=== PATIENT | male | born 1955 | race Caucasian/White ===

== ENCOUNTER 2018-03-05 09:53 | Outpatient (CLI) | payer OTHER ==
[2018-03-05 10:28] LABS: Anion Gap 19 mmol/L (10-20); BUN (Urea Nitrogen) 16 mg/dL (8.4-25.7); Calc. Creatinine Clearance 0 mL/min (70-130); Calcium 9.3 mg/dL (7.8-10.44); Carbon Dioxide 25 mmol/L (23-31); Chloride 103 mmol/L (98-107); Estimated GFR-MDRD 48; Glucose 117 mg/dL (80-115); Potassium 4.7 mmol/L (3.5-5.1); Sodium 142 mmol/L (136-145)
== END 2018-03-05 09:54 | disposition home or self-care (01) ==
LOC: MADLAB 09:53
PROVIDERS: ATTEND Internal Medicine Nephrology
DX: I12.9 Hypertensive chronic kidney disease with stage 1 through stage 4 chronic kidney disease, or unspecified chronic kidney disease (principal); N18.3 Chronic kidney disease, stage 3 (moderate)
CPT/HCPCS: 36415; 80048

== ENCOUNTER 2023-09-20 11:36 | Outpatient (CLI) | payer MEDICARE | END 2023-09-20 11:37 | disposition home or self-care (01) | LOC: MADRAD 11:36 | PROVIDERS: ATTEND Physician Assistant | DX: R05.9 Cough, unspecified (principal) | CPT/HCPCS: 71046 ==

== ENCOUNTER 2024-11-08 13:29 | Emergency (ER) | payer MEDICARE ==
[2024-11-08 14:26] LABS: #Basophils 0.1 thou/uL (0.0-0.2); #Eosinophils 0.3 thou/uL (0.0-0.7); #Lymphocytes 1.1 thou/uL (1.20-3.40); #Monocytes 0.8 thou/uL (0.11-0.59); #Neutrophils 5.3 thou/uL (1.40-6.50); %Basophils 1.3 % (0.0-1.0); %Eosinophils 4.1 % (0.0-10.0); %Lymphocytes 14.1 % (21.0-51.0); %Monocytes 10.7 % (0.0-10.0); %Neutrophils 69.7 % (42.0-75.0); Hematocrit 38.8 % (42.0-52.0); Hemoglobin 13.2 g/dL (14.0-18.0); Mean Corpuscular Volume 103.1 fl (78.0-98.0); Mean Platelet Volume 6.7 fL (7.4-10.4); Platelet Count 261 10x3/uL (130-400); RBC Distribution Width 11.6 % (11.5-14.5); Red Blood Cell (RBC) Count 3.77 mill/uL (4.70-6.10); White Blood Cell (WBC) Count 7.6 10x3/uL (4.8-10.8)
[2024-11-08 14:32] LABS: Macrocytosis SLIGHT = 6-15 cells (100X) (0-5/hpf)
[2024-11-08 14:33] LABS: ALT (SGPT) 18 U/L (Less than 45); AST (SGOT) 28 U/L (11-34); Albumin 3.6 g/dL (3.1-4.5); Alcohol 77.3 mg/dL (Less than 10); Alkaline Phosphatase 59 U/L (40-110); Anion Gap 16 mmol/L (10-20); BUN (Urea Nitrogen) 11 mg/dL (8.4-25.7); Bilirubin, Total 0.4 mg/dL (0.3-1.2); Calc. Creatinine Clearance 0 mL/min (70-130); Calcium 8.2 mg/dL (7.8-10.44); Carbon Dioxide 25 mmol/L (23-31); Chloride 92 mmol/L (98-107); Estimated GFR 73; Globulin 2.5 g/dL (2.4-3.5); Glucose 94 mg/dL (80-115); Potassium 3.9 mmol/L (3.5-5.1); Protein, Total 6.1 g/dL (5.8-8.1); Sodium 129 mmol/L (136-145)
[2024-11-08 14:36] LABS: Troponin I Less than 0.010 ng/mL (< 0.028)
[2024-11-08 14:59] LABS: Bilirubin Negative (Negative); Blood, Urine Trace (Negative); Glucose, Urine (Dipstick) Negative (Negative); Ketone, Urine Trace mg/dL (Negative); Leukocyte Moderate (Negative); Nitrite Negative (Negative); Protein, Urine (Dipstick) 100 mg/dL (Neg-Trace); Specific Gravity, Urine 1.015 (1.005-1.030); Urobilinogen 0.2 mg/dL (Less than 2)
[2024-11-08 15:00] LABS: Clarity Hazy (Clear)
[2024-11-08 15:04] LABS: Bacteria/HPF Rare-Few HPF (None Seen); CAUTI Indications for Culture Alt mental st,lethar; RBC/HPF 0-3 HPF (0-3); WBC/HPF Greater Than 50 HPF (0-3)
[2024-11-08 15:05] LABS: Urine Culture Reflex Yes Yes
[2024-11-08] MEDS ORDERED: Sodium Chloride 0.9% 500 ML ONE (15:14)
[2024-11-08] MEDS ORDERED: Ciprofloxacin 500 MG TAB ONE (15:14)
== END 2024-11-08 15:49 | disposition home or self-care (01) ==
LOC: MADERS 13:29
DX: E87.1 Hypo-osmolality and hyponatremia (principal); E86.0 Dehydration; N41.9 Inflammatory disease of prostate, unspecified; I10 Essential (primary) hypertension; R29.700 NIHSS score 0; F17.210 Nicotine dependence, cigarettes, uncomplicated; F17.220 Nicotine dependence, chewing tobacco, uncomplicated; Z79.899 Other long term (current) drug therapy
CPT/HCPCS: 36415; 71045; 80053; 80307; 81001; 84484; 85025; 87077; 87086; 87186; 93005; J7030